=== PATIENT | male | born 1960 | race African-American/Black ===

== ENCOUNTER 2016-06-30 17:46 | Emergency (ER) | payer OTHER ==
[~2016-06-30] VITALS: Ht 188 cm; Wt 121.0 kg
[2016-06-30 18:05] VITALS: BP 149/98; PULSE 82; RESP 16; TEMP 98.6; O2SAT 97
[2016-06-30] MEDS ORDERED: KETOROLAC TROMETHAMINE 60 MG/2 ML (IM) VIAL IM ONE (19:30)
[2016-06-30] MEDS ORDERED: ORPHENADRINE INJ 60 MG/2 ML AMP IM ONE (19:30)
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
[2016-06-30] MEDS ORDERED: ROBA750T PO (19:33)
[2016-06-30] MEDS ORDERED: IBUP800T23 PO (19:33)
== END 2016-06-30 20:03 | disposition home or self-care (01) ==
LOC: PHEFT 17:46
DX: S39.012A Strain of muscle, fascia and tendon of lower back, initial encounter (principal); V43.52XA Car driver injured in collision with other type car in traffic accident, initial encounter
CPT/HCPCS: 96372; 99283; J1885; J2360